=== PATIENT | female | born 1940 | race Caucasian/White ===

== ENCOUNTER 2020-01-25 10:45 | Emergency (ER) | payer BC ==
[~2020-01-25] VITALS: Ht 162.6 cm; Wt 56.7 kg
[2020-01-25] MEDS ORDERED: ATOR10TA PO (10:58)
[2020-01-25] MEDS ORDERED: FAMO-132 PO (10:58)
[2020-01-25] MEDS ORDERED: OXYC10TA49 PO (10:58)
[2020-01-25 11:49] LABS: BASOPHILS % (AUTO) 0.3 % (0.0-2.0); EOSINOPHILS # (AUTO) 0.1 K/uL (0.0-0.7); EOSINOPHILS % (AUTO) 2.6 % (0.0-7.0); HEMATOCRIT 29.8 % (31.2-41.9); HEMOGLOBIN 10.1 g/dL (10.9-14.3); LYMPHOCYTES # (AUTO) 0.9 K/uL (20.0-40.0); LYMPHOCYTES % (AUTO) 17.2 % (20.5-51.5); MEAN CORPUSCULAR HEMOGLOBIN 30.4 uug (24.7-32.8); MEAN CORPUSCULAR HGB CONC 34 g/dL (32.3-35.6); MEAN CORPUSCULAR VOLUME 89.7 fL (75.5-95.3); MONOCYTES # (AUTO) 0.4 K/uL (2.0-10.0); MONOCYTES % (AUTO) 8.8 % (0.0-11.0); NEUTROPHILS # (AUTO) 3.5 K/uL (1.8-8.9); NEUTROPHILS % (AUTO) 71.1 % (38.5-71.5); PLATELET COUNT (AUTO) 153 K/uL (179-408); RED BLOOD CELL COUNT(AUTO) 3.33 MIL/uL (3.63-4.92)
[2020-01-25 12:12] LABS: BILIRUBIN,DIRECT 0.1 mg/dL (0.0-0.2); BILIRUBIN,TOTAL 0.4 mg/dL (0.2-1.0); CREATININE 0.8 mg/dL (0.6-1.3); POTASSIUM 3.9 mmol/L (3.5-5.1); TOTAL PROTEIN, SERUM 5.9 g/dL (6.4-8.2)
--- NOTE | 2020-01-25 12:30 | NUR ---
Patient discharged to home in stable condition. Written and verbal after care instructions given. Patient verbalizes understanding of instructions. pt walks in steady gait. Stressed follow up or return to ER for worsening s/s.
[2020-01-25 12:45] VITALS: BP 99/59
== END 2020-01-25 12:30 | disposition home or self-care (01) ==
LOC: ER 10:45
DX: E86.0 Dehydration (principal); D64.9 Anemia, unspecified; G89.29 Other chronic pain; M54.9 Dorsalgia, unspecified; Z98.1 Arthrodesis status; R79.89 Other specified abnormal findings of blood chemistry; K21.9 Gastro-esophageal reflux disease without esophagitis; M79.89 Other specified soft tissue disorders
CPT/HCPCS: 36415; 70030-TC; 71045; 85025; 93005; A4663